=== PATIENT | male | born 1960 | race Asian ===

== ENCOUNTER 2021-01-28 06:16 | Day surgery (SDC) | payer OTHER ==
[~2021-01-28] VITALS: Ht 167.6 cm; Wt 52.2 kg
[2021-01-28] MEDS ORDERED: SODIUM CHLORIDE 0.9% 1,000 ML ONE (06:28)
[2021-01-28] MEDS ORDERED: SODIUM CHLORIDE 0.9% 1,000 ML IV ONE (06:30)
[2021-01-28 06:44] LABS: COVID AG,FIA SOURCE NASOPHARYNGEAL
[2021-01-28] MEDS ORDERED: FentaNYL CITRATE PF 100 MCG/2 ML VIAL ONE (07:52)
[2021-01-28] MEDS ORDERED: MIDAZOLAM HCL 5 MG/ML VIAL ONE (07:52)
[2021-01-28] MEDS ORDERED: MethylPREDNISolone SOD SUCC 125 MG/2 ML VIAL ONE (09:03)
[2021-01-28] MEDS ORDERED: MethylPREDNISolone SOD SUCC 125 MG/2 ML VIAL IVP ONE (09:15)
[2021-01-28] MEDS ORDERED: OXYGEN THERAPY IH SCH (20:00)
== END 2021-01-28 12:00 | disposition home or self-care (01) ==
LOC: SURGERY 06:16
PROVIDERS: ATTEND Internal Medicine Critical Care Medicine
DX: J38.4 Edema of larynx (principal); B37.0 Candidal stomatitis; F17.210 Nicotine dependence, cigarettes, uncomplicated; Z88.8 Allergy status to other drugs, medicaments and biological substances; Z86.11 Personal history of tuberculosis; Z79.899 Other long term (current) drug therapy; Z98.890 Other specified postprocedural states
CPT/HCPCS: 31623; 31624; 71045; 87015; 87070; 87101; 87205; 87206; 87220; 87426; 88112; 88184; 88185; 88312; C9803; J2250; J2930; J3010; J7030